=== PATIENT | male | born 1945 | race Caucasian/White ===

== ENCOUNTER 2018-09-25 10:23 | Inpatient (IN) | payer BC ==
[~2018-09-25] VITALS: Ht 180.3 cm; Wt 139.3 kg
[~2018-09-25 10:23] MED LIST: ALLOPURINOL 30300 M2 PO; AMLODIPINE BESY10 MG PO; ASA5UEC PO; BUMETANIDE 1 MG1 M1 PO; CARDURA4 MG PO; CO Q-10100 MG PO; CORAL CALCIUM1 EAC4 PO; COREG25 MG PO; COZAAR 50 MG TA50 M2 PO; CRESTOR10 MG PO; DIABETA 5MG TABL5 MG PO; ENDUR-ACIN500 MG PO; FENOFIBRATE160 MG PO; GLUCOSAMINE HC500 MG PO; JANUMET XR 50-1 EAC1 PO; L-ARGININE1000 MG PO; LEVAQUIN 500 M500 M2 PO; LEVOTHYROXINE 0.15MG PO; LOVAZA1000 MG PO; MAGNESIUM100 MG PO; MILK THISTLE500 MG PO; PLAVIX 75 MG TA75 M1 PO; PREDNISONE 10 M10 MG PO; PROTONIX40 M1 PO; QUINAGLUTE DUR324 M1 PO; TESTOSTERO200 MG/1 M MISCELL; VALERIAN450 MG PO; VITAMIN D2000 UNIT PO; VITAMIN E400 UNIT PO
[2018-09-25 10:27] VITALS: BP 165/73
[2018-09-25 11:07] LABS: ABSOLUTE EOSINOPHILS 0.3 thou/uL (0.0-0.7); ABSOLUTE MONOCYTES 0.4 thou/uL (0.0-1.2); ABSOLUTE NEUTROPHILS 4.4 thou/uL (1.6-8.1); BASOPHILS 0.8 %; EOSINOPHILS 5.2 %; HEMATOCRIT 39.2 % (42.0-52.0); LYMPHOCYTES 16.9 %; MCH 32.1 pg (26.0-34.0); MCHC 33.2 g/dL (28.0-37.0); MCV 96.8 fL (80.0-100.0); MONOCYTES 6.7 %; MPV 7.9 fl. (7.2-11.1); NUCLEATED RBCS 0 /100WBC; PLATELET COUNT* 205 thou/uL (150-400); POLYS 70.4 %; RBC 4.05 mil/uL (4.50-6.00); RDW-CV 15.8 % (10.5-14.5); WBC 6.2 thou/uL (4.0-11.0)
[2018-09-25 11:11] LABS: ANION GAP 6 mmol/L (7-16); BUN 39 mg/dL (7-18); CALCIUM 11.7 mg/dL (8.5-10.1); CHLORIDE 100 mmol/L (98-107); CO2 34 mmol/L (21-32); CREATININE 1.7 mg/dL (0.6-1.3); GLUCOSE 239 mg/dL (70-99); POTASSIUM 4.3 mmol/L (3.5-5.1); SODIUM 140 mmol/L (136-145)
[2018-09-25 11:18] LABS: APTT 25.2 Seconds (25.0-31.3); PROTIME 10.4 Seconds (9.20-11.50)
[2018-09-25 11:21] LABS: ALBUMIN 3.1 g/dL (3.4-5.0); ALKALINE PHOSPHATASE 75 U/L (46-116); NT-PRO BRAIN NAT PEPTIDE 88 pg/mL (<300); SGOT 18 U/L (15-37); SGPT 38 U/L (30-65); TOTAL BILIRUBIN 0.4 mg/dL (<0.1-1.0); TROPONIN-I LEVEL <0.06 ng/mL (<0.06)
[2018-09-25 11:41] LABS: BE 5.7 mmol/L (-2 to +3); PCO2 47.4 mmHg (35.0-45.0); PO2 72.9 mmHg (75.0-100.0); pH 7.433 (7.340-7.450)
[2018-09-25 12:40] VITALS: BP 142/62
[2018-09-25 15:52] VITALS: BP 143/77
--- NOTE | 2018-09-25 16:23 | EKG ---
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 ROJO : 1945 Requested By: Cachorro Mays Order Number: [id number] MD: Silvano Hardwick Measurements Intervals [place] Rate: 83 P: 51 LA: 177 QRS: 72 QRSD: 113 T: -11 QT: 370 QTc: 435 Interpretive Statements Sinus rhythm Borderline intraventricular conduction delay T abnormalities, inferior leads Baseline wander in lead(s) V4,V5 Compared to ECG 07/28/2015 08:35:36 T-wave abnormality now present Left posterior fascicular block no longer present Myocardial infarct finding no longer present Electronically Signed On 09-25-2018 16:23:04 CASEWORKER INTAKE by Silvano Hardwick [email or web address] <ELECTRONICALLY SIGNED> By: Silvano Hardwick MD, FACC 09/25/18 1623 1053 [id number] Silvano Hardwick MD, FACC /EPI
--- NOTE | 2018-09-25 20:32 | NUR ---
ASSUMED PT CARE @ 1245. PT UP TO ROOM BY W/C. PLACED ON OXYGEN @ 2L/NC. ORIENTED TO ROOM. CALL LIGHT WITHIN REACH.
--- NOTE | 2018-09-25 20:34 | NUR ---
PT ALERT AND ORIENTED X 4. DENIES PAIN AND NAUSEA. UP AD BRANDY. IVF INFUSING TO RAC. RECEIVE VENOUS DOPPLER @ 1630. PT TO CT SCAN @ 1700. NO COUGH AT THIS TIME-STATES ONLY IN THE MORNING. AT BEDSIDE. HOURLY ROUNDS MAINTAINED. VS STABLE. OXYGEN @ 2L/NC. WILL USE CALL LIGHT FOR ASSISTANCE. CALL LIGHT WITHIN REACH. NURSING TO CONTINUE TO MONITOR.
[2018-09-25 20:45] VITALS: BP 155/82
[2018-09-25] MEDS ORDERED: GLUCOPHAGE XR500 MG PO (22:01)
[2018-09-26] VITALS: BP 129/73
[2018-09-26 03:55] VITALS: BP 119/77
[2018-09-26 05:03] LABS: HEMATOCRIT 38.3 % (42.0-52.0); HEMOGLOBIN 12.6 gm/dL (14.0-18.0); MCH 31.8 pg (26.0-34.0); MCHC 32.8 g/dL (28.0-37.0); MCV 96.8 fL (80.0-100.0); MPV 8.4 fl. (7.2-11.1); RBC 3.95 mil/uL (4.50-6.00); RDW-CV 15.6 % (10.5-14.5); WBC 6.6 thou/uL (4.0-11.0)
[2018-09-26 05:20] LABS: CALCIUM 11.6 mg/dL (8.5-10.1); CREATININE 1.8 mg/dL (0.6-1.3); MAGNESIUM 1.7 mg/dL (1.8-2.4); POTASSIUM 4.5 mmol/L (3.5-5.1)
--- NOTE | 2018-09-26 08:35 | NUR ---
PATIENT WAS RESTLESS DURING THE NIGHT. NO C/O PAIN. VSS ON 2L 02 VIA NASAL CANNULA. PATIENT UP AD-BRANDY AND STEADY. IV IN RIGHT AC-SL. MEDICATIONS GIVEN ORDERED AND CHARTED. AT BEDSIDE. PATIENT INSTRUCTED TO USE CALL LIGHT WHEN NEEDING ASSISTANCE. HOURLY ROUNDS MADE. WILL CONTINUE WITH PLAN OF CARE AND NURSING TO MONITOR.
[2018-09-26 08:45] VITALS: BP 156/68
--- NOTE | 2018-09-26 11:14 | CON ---
[address] [address] CONSULTATION Name: OSMAR SINGER Jaleesa Room: [address] ADM IN M.R.#: [id number] Admission: 09/25/18 Attend Phys: Tammi Funes MD Discharge: Date of : 41 Report #: [id number] THIS REPORT FOR: //name// CC: Tammi Michaud DATE OF SERVICE: 09/25/2018 REQUESTED PHYSICIAN: Dr. Laughlin. INDICATION FOR CONSULTATION: Pneumonia. HISTORY OF PRESENT ILLNESS: This is a 73-year-old gentleman. He is a lifetime nonsmoker. He does have a history of pulmonary hypertension. His pulmonary artery systolic on his last echo is 60. Any workup that may have been done for his pulmonary hypertension previously is not available to me at this time. He says he follows with Dr. Paredes. The patient is on a Trilogy as well as oxygen long-term. 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 He is also not on long-term anticoagulation. He is aware that his creatinine is not normal. At this time, the patient is admitted with increasing shortness of breath and cough productive of white sputum as well as dry. The patient also reports that he has been having increasing shortness of breath, over similar period of time he has not had any chest pain. There are no upper respiratory complaints. He has had some chills, but otherwise no runny nose or sore throat. No fever. He has swelling of lower extremities, which has not changed recently. He does not have calf pain. The patient does have disturbed sleep at night as well as sleepiness during the day. He says that he uses his Trilogy regularly and there has been significant improvement in these complaints as a result. He has some joint pains, which remain at baseline. REVIEW OF SYSTEMS: For 12 points is negative except as mentioned above. PAST MEDICAL HISTORY: Pulmonary hypertension, there as an echo performed several years ago which shows left ventricular ejection fraction normal at 65%-70% but the pulmonary artery systolic is elevated to 60. His previous creatinines are from 2016 and 2017, these have been elevated; however, I do not know his baseline creatinine. He does have chronic renal insufficiency; hypertension; diabetes; obstructive sleep apnea; chronic respiratory failure with hypoxemia, on Trilogy, as well as oxygen long-term. There is mention of COPD on his records; however, as mentioned, he does not take even any nebulizers at home. Lumbar disk disease, coronary artery disease status post stents, gastroesophageal reflux disease, diabetes, hypertension. SOCIAL HISTORY: Lifetime nonsmoker. No known [place] [address] CONSULTATION Name: BIENVENIDO SINGERArpit Lazcano Room: [address] IN .R.#: [id number] Admission: 09/25/18 Attend Phys: Tammi Funes MD Discharge: Date of : 41 Report #: [id number] illegal drug use. CURRENT MEDICATIONS: List in [employer] reviewed. HOME MEDICATIONS: List also in [employer] reviewed. FAMILY HISTORY: There is no pertinent family history. ALLERGIES: There are multiple allergies listed. It is not clear to me if the patient in fact is allergic to all of these medications. LIPITOR, AZITHROMYCIN, ITRACONAZOLE, SIMVASTATIN, OTHER ANTIFUNGAL AGENTS and LAMISIL are mentioned as allergies. PHYSICAL EXAMINATION: GENERAL: Alert, awake and oriented, does not appear to be in any distress at this time. He has a body mass index elevated to 43. VITAL SIGNS: On 2 liters nasal cannula, he is saturating 97%. He has a pulse of 84, blood pressure is 142/62. He is afebrile with a temperature of 36.4. HEENT: Head is normocephalic and atraumatic. Pupils are equal and reactive. There is no throat erythema, narrow airway. NECK: Does not show raised JVP, asymmetry, mass or lymph nodes. CHEST: Decreased expansion on the right side compared to the left on inspection and palpation. On auscultation, breath sounds are absent at the right lung base. HEART: Regular. There is no murmur. ABDOMEN: Soft, nontender. EXTREMITIES: Lower extremities show 2+ edema bilaterally. There is no calf tenderness. SKIN: Dry and intact. NEUROLOGICAL: Moves all extremities bilaterally equally and spontaneously. There is no focal deficit identified. LABORATORY DATA: The patient's creatinine is elevated to 1.7. As mentioned, I am not able to establish his baseline creatinine based on available data. However, it does appear that he has longstanding elevation in creatinine. His lactate was elevated to 2.2. CBC as well as coagulation studies are in [facility] and reviewed. Arterial blood gases consistent with [id number] hypercarbic respiratory failure. ASSESSMENT AND PLAN: 1. Omyjs-wp-[id number] hypercarbic respiratory failure. The patient does appear to have obstructive sleep apnea as well as obesity hypoventilation syndrome. 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 These are the likely main etiologies of his respiratory failure. His history now is consistent with a respiratory tract infection. He at least does appear to have acute bronchitis. It is certainly possible that he has pneumonia. [place] Trilogy [place] [address] CONSULTATION Name: OSMAR SINGER Room: [address] IN ..#: [id number] Admission: 09/25/18 Attend Phys: Tammi Funes MD Discharge: Date of : 41 Report #: [id number] not available here. We will put him on average volume assured pressure support using a V60 device until his home Trilogy is available. We will continue with oxygen long-term. 2. Acute bacterial bronchitis/possible pulmonary infiltrates. Discussion regarding chest x-rays is as above. Due to the presence of chronic changes, it is not possible to state with certainty as to whether there are significant infiltrates present. Regardless, history is consistent with acute bacterial bronchitis. Therefore, I agree with broad-spectrum antibiotics as currently ordered. I would like to clarify further by doing a CT chest. Unfortunately, due to an elevation in creatinine, this will need to be done without contrast. 3. Severe pulmonary hypertension. Note that he is not on anticoagulation custodial. Any workup that may have been done in the past is not available to me at this time. Obesity hypoventilation syndrome and obstructive sleep apnea, as well as a paralyzed diaphragm would increase pulmonary artery pressures; however, this may not be sufficient to explain this. It is possible there are additional etiologies as well. I will go ahead and repeat an echo and see where we stand. CT is done and are being done without contrast, however, I will do venous Dopplers again. 4. 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 I suspect that the right hemidiaphragm is paralyzed, sniff test could be done to verify this. However, this will not exchange consultant at this time. The same is therefore not ordered at this time. 5. Fluid overload/elevated lactate levels. I doubt sepsis. Lactate levels are likely elevated secondary to respiratory failure and as long as his creatinine and blood pressure is stable, I would favor not giving him IV fluids in an attempt to decrease lactate levels. 6. Possible chronic obstructive pulmonary disease/bronchospasm. There is no definite history of this. Certainly some bronchospasm is possible. If not previously evaluated, this may need to be evaluated further. For now, continuing nebulized bronchodilators, in fact continuing them long-term appears reasonable. He is on DuoNeb, I will continue the same. In the short term, it also appears reasonable to give him corticosteroids; however, I will cut back on the Solu-Medrol dose. 7. Chronic renal insufficiency. As noted above, his baseline creatinine is not known to me at this time. Thanks for this consultation. <ELECTRONICALLY SIGNED> By: Raad Razo MD 09/26/18 1114 [id number] Kraft MD /nt
--- NOTE | 2018-09-26 15:25 | NUR ---
PT.UP IN CHAIR. STATES HIS ROOM IS COLD. HE WAS ALERT AND ORIENTED. HE LIVES WITH HIS . HE HAS O2 FROM [facility]/ ALSO HAS A TRILOGY FROM [facility]. HE SAID HE AND ARE INDEPENDENT. HE SHOULD USE A CANE BUT HE SAID 'NOT TIL I FALL DOWN WILL I USE A CANE.' HE AND GO OUT OF STATE FOR THE WINTER. BOTH DRIVE. DOES NOT THINK HE WILL HAVE ANY DISCHARGE NEEDS.
[2018-09-26 16:00] VITALS: BP 138/75
--- NOTE | 2018-09-26 18:26 | NUR ---
PT ALERT AND ORIENTED X 4. DENIES NAUSEA. RECEIVED TYLENOL FOR HEADACHE PAIN. OXYGEN @ 2 L/NC. IV PATENT. UP AMBULATING IN HALLWAY. USES OWN PORTABLE OXYGEN. NASAL SWAB COMPLETED AND SENT TO LAB. HOURLY ROUNDS MAINTAINED. WILL USE CALL LIGHT FOR ASSISTANCE. CALL LIGHT WITHIN REACH. NURSING TO CONTINUE TO MONITOR.
[2018-09-26 20:00] VITALS: BP 148/70
[2018-09-27 04:02] LABS: HEMATOCRIT 37.9 % (42.0-52.0); HEMOGLOBIN 12.4 gm/dL (14.0-18.0); MCH 31.6 pg (26.0-34.0); MCHC 32.7 g/dL (28.0-37.0); MCV 96.4 fL (80.0-100.0); MPV 8.3 fl. (7.2-11.1); RBC 3.93 mil/uL (4.50-6.00); RDW-CV 15.6 % (10.5-14.5); WBC 11.8 thou/uL (4.0-11.0)
[2018-09-27 04:31] LABS: CALCIUM 10.8 mg/dL (8.5-10.1); CREATININE 1.7 mg/dL (0.6-1.3); MAGNESIUM 2.1 mg/dL (1.8-2.4); POTASSIUM 4.7 mmol/L (3.5-5.1)
--- NOTE | 2018-09-27 04:55 | NUR ---
UP AD BRANDY IN ROOM. ALERT AND ORIENTED X4. DENIES C/O PAIN OR NAUSEA. LUNG SOUNDS HAVE CRACKLES IN BASES. ON O2 AT 2L/NC. USES CPAP AT NIGHT. CONTINUES ON IV ANTIBIODIC AND BREATHING TREATMENTS WITHOUT ADVERSE REACTIONS OR SIDE EFFECTS. CALL LIGHT WITHIN REACH. WILL CONTINUE TO MONITOR.
[2018-09-27 08:10] VITALS: BP 143/70
[2018-09-27] MEDS ORDERED: PREDNISONE 10 M10 MG PO (18:21)
[2018-09-27] MEDS ORDERED: CEFDINIR300 MG PO (18:36)
[2018-09-27 18:39] VITALS: BP 143/70
[2018-09-27 19:05] VITALS: BP 143/70
--- NOTE | 2018-09-27 20:39 | NUR ---
PT ALERT AND ORIENTED X 4. DENIES PAIN AND NAUSEA. NON-PRODUCTIVE COUGH NOTED. OXYGEN @ 2L/NC. 2+ EDEMA BILAT. PT HAS PORTABLE OXYGEN TANK FROM HOME TO AMBULATE IN HALLWAY. FLU VACCINE GIVEN. DISCHARGE INSTRUCTIONS AND PRESCRIPTIONS GIVEN. IV REMOVED. PT LEFT BY AMBULATION WITH NURSING STAFF TO LEAVE WITH ALONG WITH PERSONAL BELONGINGS PER PRIVATE CAR.
== END 2018-09-27 19:05 | disposition home or self-care (01) | DRG 177 ==
LOC: M.ERS 10:23 → M.TBA-ER 12:12 → M.ORTHSURG 12:12
PROVIDERS: Emergency Medicine; Internal Medicine; ADMIT Internal Medicine
DX: J15.6 Pneumonia due to other Gram-negative bacteria (principal); J96.21 Acute and chronic respiratory failure with hypoxia; J96.22 Acute and chronic respiratory failure with hypercapnia; R65.11 Systemic inflammatory response syndrome (SIRS) of non-infectious origin with acute organ dysfunction; J44.1 Chronic obstructive pulmonary disease with (acute) exacerbation; J44.0 Chronic obstructive pulmonary disease with (acute) lower respiratory infection; E66.2 Morbid (severe) obesity with alveolar hypoventilation; E87.2 Acidosis; E44.1 Mild protein-calorie malnutrition; Z68.41 Body mass index [BMI] 40.0-44.9, adult; I27.20 Pulmonary hypertension, unspecified; E78.5 Hyperlipidemia, unspecified; E11.22 Type 2 diabetes mellitus with diabetic chronic kidney disease; I12.9 Hypertensive chronic kidney disease with stage 1 through stage 4 chronic kidney disease, or unspecified chronic kidney disease; I25.10 Atherosclerotic heart disease of native coronary artery without angina pectoris; K21.9 Gastro-esophageal reflux disease without esophagitis; J20.9 Acute bronchitis, unspecified; E87.70 Fluid overload, unspecified; I27.81 Cor pulmonale (chronic); N18.3 Chronic kidney disease, stage 3 (moderate); J98.6 Disorders of diaphragm; Z23 Encounter for immunization; Z95.5 Presence of coronary angioplasty implant and graft; Z88.1 Allergy status to other antibiotic agents; Z88.8 Allergy status to other drugs, medicaments and biological substances

== ENCOUNTER → 2019-01-30 | Outpatient (CLI) | payer BC ==
[~2019-01-30] MED LIST changes: +CEFDINIR300 MG PO; +GLUCOPHAGE XR500 MG PO
[2019-01-30 17:07] LABS: IgA 144 mg/dL (61-437); IgG 855 mg/dL (700-1600); IgM 21 mg/dL (15-143)
== END ==
LOC: M.NUC 01-19 16:29 → M.CT 08:00 → M.NUC 10:15
DX: E83.52 Hypercalcemia (principal); S22.41XD Multiple fractures of ribs, right side, subsequent encounter for fracture with routine healing; J98.11 Atelectasis; N28.1 Cyst of kidney, acquired; I70.0 Atherosclerosis of aorta; I25.10 Atherosclerotic heart disease of native coronary artery without angina pectoris; M47.814 Spondylosis without myelopathy or radiculopathy, thoracic region; Z88.8 Allergy status to other drugs, medicaments and biological substances; X58.XXXD Exposure to other specified factors, subsequent encounter